=== PATIENT | male | born 2000 | race Caucasian/White ===

== ENCOUNTER → 2019-06-07 | Day surgery (SDC) | payer OTHER ==
[~2019-06-07] MED LIST: Bupivacaine 0.25% HCL 30 ML VIAL ONE; Bupivacaine PF 0.5% 30 ML VIAL ONE; EPINEPHrine 1 MG/ML AMP ONE
--- NOTE | 2019-06-07 11:21 | HP ---
HISTORY OF PRESENT ILLNESS: Robbie Howard is a 19-year-old male patient with a 5-day history of right lateral abdominal pain without nausea or vomiting, without anorexia, without fever. He has not had diarrhea. He presented to [facility] last night, had a normal white count, normal urinalysis, underwent CT scan of the abdomen and pelvis with p.o. and IV contrast, revealing equivocal findings of the tip of the appendix without inflammatory changes. Clinical correlation suggested. The patient was transferred with a diagnosis of appendicitis after receiving a dose of Zosyn at 0745 hours this morning. He last had single dose of narcotics more than 10 hours ago. The patient is feeling well and moving about. As I examined him, his abdomen is nontender and he is able to jump up and down on his right foot without any discomfort or hesitation or pain at all. ALLERGIES: NONE. HABITS: Tobacco, none. Alcohol, rarely. MEDICATIONS: None. PAST SURGICAL AND MEDICAL HISTORY: Noncontributory. PHYSICAL EXAMINATION: HEAD, EARS, EYES, NOSE, AND THROAT: Unremarkable. LUNGS: Clear to auscultation. CARDIAC: Regular rate and rhythm without murmur or gallop. ABDOMEN: Soft and nontender. No masses. No guarding. No rebound whatsoever. VITAL SIGNS: Heart rate 68, blood pressure 116/74, respiratory rate 18. LABORATORY DATA: White count 6 and hemoglobin normal. ASSESSMENT AND PLAN: No indication for appendectomy. No evidence of appendicitis. Would discharge him home with diet as tolerated. Would return to see me should he develop worsening right lower quadrant pain, fever, anorexia, or other symptoms that needs re-evaluation. At this time, I do not think he has appendicitis. I do not think routine followup is necessary unless he develops problems. He most likely has a muscle strain, although he does not give a history of an event that he knows caused this. He has been playing tennis all week long without problems with this pain. Job ID: [id number]
== END ==
LOC: SDC 09:49
PROVIDERS: ATTEND Specialist
DX: R10.9 Unspecified abdominal pain (principal)
CPT/HCPCS: J0171; S0020